=== PATIENT | male | born 1955 | race Caucasian/White ===

== ENCOUNTER 2017-10-10 07:57 | Emergency (ER) | payer OTHER ==
[~2017-10-10] VITALS: Ht 177.8 cm; Wt 127.0 kg
[~2017-10-10 07:57] MED LIST: ANDROGEL; ASPIRIN81 M2 PO; BYSTOLIC 5 MG5 M1 PO; CLEOCIN HCL300 MG PO; CRESTOR20 MG PO; EFFEXOR XR; ENOXAPARIN120 MG/0.8 SUBQ; FISHOIL; FLONASE; JANTOVEN7.5 MG PO; LOPERAMIDE 2 MG2 M1 PO; MAGNESIUM100 MG; MAGNESIUM27 MG PO; NAPROSYN250 MG PO; NEPHROCAPS SOFT1 CAP PO; NORCO 5-325 TA1 EACH PO; OMEPRAZOLE 20 M20 M1 PO; ONDANSETRON HCL4 M2 PO; SYMBICORT160 MCG/4.; SYMBICORT80 MCG/4.1 INH; VIIBRYD40 MG PO; VITAMIN D400 UNI1 PO; ZESTRIL10 MG PO
[2017-10-10] MEDS ORDERED: ELIQUIS5 MG PO (09:07)
[2017-10-10] MEDS ORDERED: TRAMADOL 50 MG50 MG PO (09:26)
== END 2017-10-10 09:47 | disposition home or self-care (01) ==
LOC: ER 07:57
DX: M23.92 Unspecified internal derangement of left knee (principal); I10 Essential (primary) hypertension; E66.9 Obesity, unspecified; I82.409 Acute embolism and thrombosis of unspecified deep veins of unspecified lower extremity; Z98.890 Other specified postprocedural states; Z87.891 Personal history of nicotine dependence

== ENCOUNTER 2018-11-03 07:38 | Inpatient (IN) | payer OTHER ==
[~2018-11-03] VITALS: Ht 177.8 cm; Wt 59.0 kg
--- NOTE | ~2018-11-03 | EKG ---
[place] [address] [facility] [place] [address] ELECTROCARDIOGRAM REPORT Name: JULIO CESAR LEE Room #: 206-P ADM IN M.R.#: [id number] Admission: 11/03/18 Attend Phys: Rancho Jones MD, Discharge: Date of : 51 Report #: [id number] THIS REPORT FOR: //name// [facility] Test Date: 2018-11-04 Test Time: 07:15:08 Pat Name: JULIO CESAR LEE Department: Room: 206 P Gender: M Frame Wirer: JULIAN : 1955 Requested By: Pretty Chamberlain Order Number: [id number] MD: Crow Gaitan Measurements Intervals [place] Rate: 67 P: 65 [place]: 175 QRS: -67 QRSD: 124 T: 68 QT: 424 QTc: 448 Interpretive Statements Sinus rhythm Poor R wave progression Nonspecific IVCD with LAD LVH with secondary repolarization abnormality Baseline wander in lead(s) V5 Compared to ECG 11/03/2018 07:59:59 Left ventricular hypertrophy now present Sinus bradycardia no longer present Electronically Signed On 11-04-2018 8:22:35 DIESEL POWER MECHANIC by Crow Gaitan [email or web address] <ELECTRONICALLY SIGNED> By: Crow Gaitan MD 11/04/18821 4 4 Crow Gaitan MD /EPI
--- NOTE | ~2018-11-03 | CATHLAB ---
[facility] [place] [address] INVASIVE PROCEDURE REPORT Name: JULIO CESAR LEE Room #: 206-P ADM IN ..#: [id number] Admission: 11/03/18 Attend Phys: Rancho Jones, Discharge: Date of : 51 Date of Service: 11/04/18 0912 Report #: [id number] THIS REPORT FOR: //name// APPROVED REPORT Study performed: 11/03/2018 08:15:23 Patient Details Patient Status: Out-Patient Room #: The patient is a 63 year-old male Event Personnel Rancho Jones Control Room Helper, Nir Reardon RN RN, Marely Nolasco RTR, BRIQUETTER OPERATOR Monitor, Richie Sarmiento Procedures Performed Art Access - R femoral artery* Left Heart Cath Coronaries, Bypass Grafts 4828105 LHCCORCABG Aortogram Abdominal Peripheral Angio 453940 34995 Initial Mod Sed Same Phys/QHP Gr 725304 07977 Mod Sed Same Phys/QHP Ea 697453 CARINA Place w/wo Plasty Single DIAG 123358 Hemostasis w/ Mynx Indication Positive stress test Procedure Narrative The Right Groin^ was infiltrated with 1% Lidocaine subcutaneous anesthesia. A PINNACLE 6FR Sheath #[id number] sheath was inserted into the RFA^. Coronary angiography was performed using coronary diagnostic catheters. The right coronary system was accessed and visualized with a JR4 catheter. The left coronary system was accessed and visualized with a JL4 catheter. The left ventricle was accessed and visualized with a PIGTAIL catheter. Left ventriculogram was performed in 30 degree projection. An aortogram of the abdominal aorta was performed. Closure device was deployed with a 6 Fr MYNXGRIP 6/7F #[id number]. The patient tolerated the procedure well and there were no complications associated with the procedure. There was no hematoma. Intraoperative Conscious Sedation Sedation start time: 09:16 Case end Time: 10:15 Fentanyl 50 mcg Versed 1 mg Fluoro Time: 1789.00 minutes [facility] [address] [place] [address] INVASIVE PROCEDURE REPORT Name: JULIO CESAR LEE Room #: 206-P [facility] IN ..#: [id number] Admission: 11/03/18 Attend Phys: Rancho Jones, Discharge: Date of : 51 Date of Service: 11/04/18 0912 Report #: [id number] Dose: DAP 69875.30 cGycm2 1789 mGy Contrast Type and Amount: Visipaque 210 ml Hemodynamics The aortic pressure is 145/75 mmHg with a mean of 106 mmHg. The left ventricular pressure is 139/10 mmHg with a mean of mmHg. The left ventricular end diastolic pressure is 25 mmHg. PCI Technique Lesion Percutaneous coronary intervention was performed on the first diagnonal branch segment. A Luge Wire .014 x 182CM #[id number] Guide Catheter was used to engage the ostium. A LAUNCHER 6FR EBU 4 #[id number] Interventional Guidewire was used to cross the lesion. BALLOON DILATION A Balloon catheter Sprinter OTW 2.5 x 15 #[id number] was inserted and inflated up to 12.00atm for 28seconds. STENT DEPLOYMENT A drug-eluting stent 2.75mm x 17mm EluNir RX was inserted and inflated up to 12.00atm for 31seconds. Additional Inflation: 16.00atm for 36seconds. Conclusion #1 successful PTCA stent of a proximal diagonal branch 95% lesion to 0% with placement of a 2.75 x 17 Elunir stent. Drug-eluting postdilated 2.9 mm #2 left main is free of disease giving rise to the LAD diagonal system the LAD occludes and the circumflex remains patent #3 LAD proximally occluded is filled via a BURNS graft #4 the circumflex OM is nondominant the first OM is occluded and was previously bypassed. The bypass graft is also occluded diffuse distal disease in the nondominant system #5 the BURNS graft to the LAD is intact the LAD is diffusely diseased. Extends to the apex #6 large dominant right coronary artery with mild disease giving rise to the PDA which is diffusely diseased it extends along the entire inferior wall #6 and SVG to the first OM is occluded #7 there is a graft patent that's relatively small and filling a very small either diagonal branch or a OM branch not supplying any significant myocardium #8 normal left ventricular size with subtle lateral wall leg EF 50-55% #9 selective bilateral renal artery injections were performed there is an approximate 40-50% ostial narrowing on the left renal artery. 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 Holding on aspirin we'll continue this regimen at least 6 months. Patient has no bleeding history Transfer CCU follow post stent protocol stable condition <ELECTRONICALLY SIGNED> By: Rancho Jones MD, FACC 11/04/18911 1 1 Rancho Jones MD, FACC /INF
--- NOTE | ~2018-11-03 | EKG ---
[place] [address] [facility] [place] [address] ELECTROCARDIOGRAM REPORT Name: JULIO CESAR LEE Room #: [facility]#: [id number] Admission: 11/03/18 Attend Phys: Rancho Jones MD, Discharge: Date of : 51 Report #: [id number] THIS REPORT FOR: //name// [facility] Test Date: 2018-11-03 Test Time: 07:59:59 Pat Name: JULIO CESAR LEE Department: Room: Gender: M Educational Psychologist: DAWOOD : 1955 Requested By: Rancho Jones Order Number: [id number] MD: Dewey Sinclair Measurements Intervals [place] Rate: 49 P: 6 [place]: 173 QRS: 123 QRSD: 125 T: 7 QT: 435 QTc: 393 Interpretive Statements Sinus bradycardia Nonspecific intraventricular conduction delay Baseline wander in lead(s) V5 No previous ECG available for comparison Electronically Signed On 11-03-2018 8:43:15 PROCESS DEVELOPMENT CHEMIST by Dewey Sinclair [email or web address] <ELECTRONICALLY SIGNED> By: Dewey Sinclair MD, [facility] 11/03/18 0843 [id number] Dewey Sinclair MD, FACC /EPI
[~2018-11-03 07:38] MED LIST changes: +ELIQUIS5 MG PO; +TRAMADOL 50 MG50 MG PO
[2018-11-03] MEDS ORDERED: ALEVE220 MG PO (07:55)
[2018-11-03 08:06] VITALS: BP 128/69
[2018-11-03 08:12] LABS: HEMATOCRIT 47.7 % (42.0-52.0); HEMOGLOBIN 15.7 gm/dL (14.0-18.0); MCH 30.4 pg (26.0-34.0); MCHC 32.9 g/dL (28.0-37.0); MCV 92.5 fL (80.0-100.0); RBC 5.16 mil/uL (4.50-6.00); RDW 14.2 % (10.5-14.5); WBC 6.9 thou/uL (4.0-11.0)
[2018-11-03 08:26] LABS: CALCIUM 9.8 mg/dL (8.5-10.1); CREATININE 1.3 mg/dL (0.7-1.3); POTASSIUM 4.4 mmol/L (3.5-5.1)
[2018-11-03 11:00] VITALS: BP 116/61
[2018-11-03 15:40] VITALS: BP 122/67
[2018-11-03 19:18] VITALS: BP 116/55
[2018-11-04 00:18] VITALS: BP 117/75
[2018-11-04 03:52] LABS: HEMATOCRIT 44.5 % (42.0-52.0); HEMOGLOBIN 14.6 gm/dL (14.0-18.0); MCH 30.4 pg (26.0-34.0); MCHC 32.9 g/dL (28.0-37.0); MCV 92.5 fL (80.0-100.0); RBC 4.82 mil/uL (4.50-6.00); RDW 14.2 % (10.5-14.5); WBC 8.4 thou/uL (4.0-11.0)
[2018-11-04 03:54] LABS: ALBUMIN 3.4 g/dL (3.4-5.0); ANION GAP 8 mmol/L (7-16); BUN 22 mg/dL (7-18); CALCIUM 9.3 mg/dL (8.5-10.1); CHLORIDE 107 mmol/L (98-107); CO2 26 mmol/L (21-32); CREATININE 1.3 mg/dL (0.7-1.3); GLUCOSE 122 mg/dL (74-106); POTASSIUM 4.1 mmol/L (3.5-5.1); SGOT 23 U/L (15-37); SGPT 32 U/L (30-65); SODIUM 141 mmol/L (136-145); TOTAL BILIRUBIN 0.6 mg/dL (<0.1-1.0); TOTAL PROTEIN 6.7 g/dL (6.4-8.2); TROPONIN-I <0.06 ng/mL (<0.06)
[2018-11-04 06:22] VITALS: BP 111/68
[2018-11-04] MEDS ORDERED: CLOPIDOGREL75 MG PO (07:44)
[2018-11-04 07:52] VITALS: BP 122/71
[2018-11-04 08:04] VITALS: BP 122/71
== END 2018-11-04 09:51 | disposition home or self-care (01) | DRG 246 ==
LOC: CATH 07:38 → 2N 10:29
PROVIDERS: Internal Medicine Cardiovascular Disease; Nurse Practitioner Gerontology
PROC: 4A023N7 Measurement of Cardiac Sampling and Pressure, Left Heart, Percutaneous Approach (ICD-10-PCS; principal; 2018-11-04)
PROC: B213YZZ Fluoroscopy of Multiple Coronary Artery Bypass Grafts using Other Contrast (ICD-10-PCS; principal; 2018-11-04)
PROC: B215YZZ Fluoroscopy of Left Heart using Other Contrast (ICD-10-PCS; principal; 2018-11-04)
PROC: 027034Z Dilation of Coronary Artery, One Artery with Drug-eluting Intraluminal Device, Percutaneous Approach (ICD-10-PCS; principal; 2018-11-04)
PROC: B211YZZ Fluoroscopy of Multiple Coronary Arteries using Other Contrast (ICD-10-PCS; principal; 2018-11-04)
PROC: B310YZZ Fluoroscopy of Thoracic Aorta using Other Contrast (ICD-10-PCS; principal; 2018-11-04)
PROC: B218YZZ Fluoroscopy of Left Internal Mammary Bypass Graft using Other Contrast (ICD-10-PCS; principal; 2018-11-04)
DX: I25.10 Atherosclerotic heart disease of native coronary artery without angina pectoris (principal); I50.33 Acute on chronic diastolic (congestive) heart failure; I10 Essential (primary) hypertension; E78.5 Hyperlipidemia, unspecified; Z95.1 Presence of aortocoronary bypass graft; Z79.01 Long term (current) use of anticoagulants; Z79.82 Long term (current) use of aspirin; Z79.899 Other long term (current) drug therapy; Z86.718 Personal history of other venous thrombosis and embolism
CPT/HCPCS: 10081

== ENCOUNTER → 2020-03-28 | Outpatient (CLI) | payer OTHER ==
[~2020-03-28] MED LIST changes: +ALEVE220 MG PO; +CLOPIDOGREL75 MG PO
== END ==
LOC: SJCVC 11:41
DX: I45.2 Bifascicular block (principal); R00.1 Bradycardia, unspecified; R94.31 Abnormal electrocardiogram [ECG] [EKG]; I25.810 Atherosclerosis of coronary artery bypass graft(s) without angina pectoris; I10 Essential (primary) hypertension; E78.00 Pure hypercholesterolemia, unspecified; G47.33 Obstructive sleep apnea (adult) (pediatric); D68.59 Other primary thrombophilia; I82.409 Acute embolism and thrombosis of unspecified deep veins of unspecified lower extremity; I87.2 Venous insufficiency (chronic) (peripheral); J45.909 Unspecified asthma, uncomplicated; Z79.899 Other long term (current) drug therapy; Z87.891 Personal history of nicotine dependence; Z99.89 Dependence on other enabling machines and devices

== ENCOUNTER → 2020-09-28 | Outpatient (CLI) | payer OTHER | LOC: SJCVC 13:22 | PROVIDERS: ATTEND Internal Medicine Cardiovascular Disease | DX: R94.31 Abnormal electrocardiogram [ECG] [EKG] (principal); I44.5 Left posterior fascicular block; I25.10 Atherosclerotic heart disease of native coronary artery without angina pectoris; I10 Essential (primary) hypertension; I87.2 Venous insufficiency (chronic) (peripheral); D68.59 Other primary thrombophilia; I70.1 Atherosclerosis of renal artery; I38 Endocarditis, valve unspecified; E78.00 Pure hypercholesterolemia, unspecified; Z79.899 Other long term (current) drug therapy; Z87.891 Personal history of nicotine dependence; Z86.718 Personal history of other venous thrombosis and embolism ==

== ENCOUNTER → 2021-03-29 | Outpatient (CLI) | payer OTHER | LOC: SJCVCIMAG 09:08 | PROVIDERS: ATTEND Internal Medicine Cardiovascular Disease | DX: R00.0 Tachycardia, unspecified (principal); I49.3 Ventricular premature depolarization; N28.1 Cyst of kidney, acquired; I10 Essential (primary) hypertension; I25.10 Atherosclerotic heart disease of native coronary artery without angina pectoris; I70.1 Atherosclerosis of renal artery; E78.5 Hyperlipidemia, unspecified; Z95.1 Presence of aortocoronary bypass graft; Z79.899 Other long term (current) drug therapy; Z87.891 Personal history of nicotine dependence ==